=== PATIENT | male | born 1960 | race Caucasian/White ===

== ENCOUNTER 2016-09-27 11:13 | Day surgery (SDC) | payer MEDICARE, OTHER ==
[~2016-09-27] VITALS: Ht 170.2 cm; Wt 109.0 kg
[~2016-09-27 11:13] MED LIST: BENI40TA30 PO; CITA20TA4 PO; COUM7.5T PO; CYCL5TAB PO; GLUCTAB PO; HYDR10TA16 PO; LEVEMIR SC; NOVORP2 SQ; REST30CA PO; ROSU40 PO
[2016-09-27] MEDS ORDERED: ASPIRIN 81 MG CHEW TAB PO SCH (11:30)
[2016-09-27] MEDS ORDERED: FURO1TAB62 PO (11:46)
[2016-09-27] MEDS ORDERED: COUM6TAB PO (11:46)
[2016-09-27] MEDS ORDERED: IRBE150T15 PO (11:46)
[2016-09-27] MEDS ORDERED: TEMA30CA PO (11:46)
[2016-09-27] MEDS ORDERED: METF500T PO (11:46)
[2016-09-27] MEDS ORDERED: ESCI10TA PO (11:46)
[2016-09-27] MEDS ORDERED: LIPI40TA PO (11:46)
[2016-09-27] MEDS ORDERED: SPIR25 PO (11:46)
[2016-09-27] MEDS ORDERED: HYDR-3583 PO (11:46)
[2016-09-27] MEDS ORDERED: GABA300C5 PO (11:46)
[2016-09-27] MEDS ORDERED: LANTINJ SQ (11:46)
[2016-09-27] MEDS ORDERED: AMLO10TA2 PO (11:46)
[2016-09-27] MEDS ORDERED: METO-309 PO (11:46)
[2016-09-27 11:47] VITALS: BP 153/95; PULSE 71; RESP 18; TEMP 98.6; O2SAT 98
[2016-09-27 12:11] LABS: AUTOMATED NEUTROPHIL # 4.8 TH/MM3 (1.8-7.7); BASOPHIL # 0.1 TH/MM3 (0-0.2); BASOPHIL % 0.9 % (0.0-2.0); EOSINOPHIL # 0.3 TH/MM3 (0-0.4); EOSINOPHIL % 4.7 % (0.0-4.0); HEMO FLAGS DIFF FINAL; LYMPH % 14.8 % (9.0-44.0); MEAN CELL VOLUME 82.8 FL (80.0-100.0); MEAN CORPUSCULAR HEMOGLOBIN 27.9 PG (27.0-34.0); MEAN CORPUSCULAR HGB CONC 33.7 % (32.0-36.0); MONO % 10.3 % (0.0-8.0); NEUT % 69.3 % (16.0-70.0); PLATELET COUNT 171 TH/MM3 (150-450); RED BLOOD COUNT 5.32 MIL/MM3 (4.50-5.90); RED CELL DISTRIBUTION WIDTH 15.9 % (11.6-17.2); WHITE BLOOD COUNT 6.9 TH/MM3 (4.0-11.0)
[2016-09-27 12:17] LABS: PROTHROMBIN TIME - PATIENT 11.3 SEC (9.8-11.6)
[2016-09-27 12:25] LABS: BICARBONATE 26.4 MEQ/L (21.0-32.0); POTASSIUM 4.7 MEQ/L (3.5-5.1)
[2016-09-27] MEDS ORDERED: HEPARIN-NS/PF INJ 500 ML ONE (13:38)
[2016-09-27] MEDS ORDERED: MIDAZOLAM HCL 2 MG/2 ML VIAL ONE (14:07)
[2016-09-27] MEDS ORDERED: HEPARIN SODIUM - IV 10,000 UNITS/10 ML VIAL ONE (14:24)
[2016-09-27] MEDS ORDERED: TIROFIBAN INFUSION INJ 250 ML IV ONE (14:28)
[2016-09-27] MEDS ORDERED: CLOPIDOGREL 300 MG TAB ONE (14:41)
[2016-09-27] MEDS ORDERED: ASPIRIN 81 MG CHEW TAB ONE (14:41)
[2016-09-27] MEDS: TIROFIBAN INFUSION INJ 250 ML IV SCH (14:55)
[2016-09-27] MEDS ORDERED: BACITRACIN OINT 0.9 GM PKT TOP ONE (15:00)
[2016-09-27] MEDS ORDERED: MISC INFORMATION XX ONE (15:00)
[2016-09-27] MEDS ORDERED: SODIUM CHLORIDE 0.9% FLUSH 10 ML FLUSH PRN (15:00)
[2016-09-27] MEDS ORDERED: CLOPIDOGREL 300 MG TAB PO ONE (15:00)
--- NOTE | 2016-09-27 15:19 | CATHPROC ---
LIQVID HIS Report Study Information Study Number Admission Scheduled Start Study Start [id number] Sep 27 2016 11:13AM 09/27/2016 Sep 27 2016 1:45PM [place] Service Cardiac Catheterization Admit Source Facility Department Other [facility] - Mixing Machine Tender [employer] Physician and Clinical Staff Initial Steven Song [employer] Person Sofia Antonio,MARCELO Recorder Nancy Jones,RT(R) Recorder Carlos A Lopez RCIS(BS) Scrub Abril Truong RCIS TECH2 Procedures Performed Procedure Location (Site) Vessel Name Coronary Angiograms RCA Right Coronary Coronary Angiograms BRUNO Graft Left Coronary Coronary Angiograms SVG-OM CIRC Drug Eluting Inflatio PDA Prox Right Coronary LV Gram-hand inj. LV LV Ventricle PTCA PDA Prox Right Coronary Wire insertion Fem Art (right) Femoral Art Equipment Time Atomizer Assembler Description Size Mfg Part Number Used/Scraped [id number] 14:32 [employer] WIRE, ASAHI PROWATER 180CM 180CM Used *[id number] 14:38 [employer] WIRE, ASAHI PROWATER 180CM 180CM Used *[id number] CATHETER, FR5 SWAN ABIGAIL 13:52 SHARMA ANTONIO FR 5 [id number] *[id number] Used MONITOR TRANSDUCER, TRUWAVE [id number] 13:52 SHARMA ANTONIO * Used W/STOCKCOCK *[id number] 538-420 *[id number] *[id number] [id number] *[id number] WIRE, HYDROSTEER 150CM [id number] 14:19 DAIG/[employer] [place] MED[employer] 150CM Used ANGLED GLIDE *[id number] 13:52 MEDLINE INDUSTRIES PACK, CCL CUSTOM * Used *[id number] 13:52 MEDLINE PACER PEN, SKIN DUAL W/ RULER * Used *[id number] BALLOON, 2.5 X 12MM NC [id number] 14:40 MEDTRONIC 12MM Used EUPHORA *[id number] 14:35 MEDTRONIC STENT, 2.5 14 INTEGRITY 2.5 14 Used *[id number] 14:36 SmartThings MEDICAL 30 DAGOBERTO INDEFLATOR Used *[id number] [id number]-5F- 13:52 SmartThings MEDICAL SHEATH, FR5.5 PRELUDE 11CM FR 5.5 Used [id number] [id number]-6F- 14:27 SmartThings MEDICAL SHEATH, FR6.5 PRELUDE 11CM FR 6.5 038ACT Used *[id number] 13:52 MERIT MEDICAL WIRE, 3MMJ .035 180CM 180CM Used *[id number] 13:52 NAMIC MANIFOLD, 4 PORT * Used *[id number] 13:52 NYCOMED OMNIPAQUE, 350 MG, 150ML 150ML [id number] Used [id number] 13:52 [employer] MEDICAL BLANKET,WARM AIR CCL * Used *[id number] 13:52 TERUMO MEDICAL SHEATH, FR4 TERUMO (10CM) FR 4 Used *[id number] Equipment Model, Serial, Lot Number and Expiration Data Description Model Number Serial Number Lot Number Expiration Date STENT, 2.5 14 INTEGRITY [id number] 05-24-2017 WIRE, HYDROSTEER 150CM [id number] 07-14-2019 ANGLED GLIDE History: Current Medications Medication Dosage/Unit Route Frequency Last Date/Time Taken Beta Edith Coumadin History: Allergies Allergy Reaction *MDRO Multi-Drug Resistant Organism SOME PLASTICS PT STATES NO ALLERGY TO THIS History: Risk Factors Family History of Hypertension Dyslipidemia Previous ME Previous Heart Failure Premature CAD Yes Yes Yes Yes Yes Prior Valve Prior PCI Prior PCIDate Prior CABG Prior CABGDate Surgery No Yes 02/13/2015 Yes 02/13/2015 Cerebrovascular Peripheral Artery Chronic Lung On Dialysis Diabetes Diabetes Therapy Disease Disease Disease No Yes Yes Yes Yes Insulin History: Symptoms/Diagnosis Selection Items Chest pain History: Stress Tests Stress or Imaging Studies Performed Yes Standard Exercise Stress Test No Stress Echo No Stress Test SPECT Stress Test SPECT Result Stress Test SPECT Ischemia Risk/Extent Yes Positive Low Stress Test CMR No Cardiac CTA Coronary Calcium Score No No History: Other Disease Selection Items CAD CHF COPD History: Other Current Smoker No Labs Hgb (g/dl) Hct (%) WBC (l/cumm) Platelets (thousands) 11.60-17.00 35.00-51.00 4.00-11.00 150.00-450.00 14.8 44 6.9 171 Glucose (mg/dl) BUN (mg/dl) Creatinine (mg/dl) BUN:Creatinine (1:x) 74.00-106.00 7.00-18.00 0.50-1.30 10.00-20.00 159 26 1.4 18.6 Na (meq/l) K (meq/l) 136.00-145.00 3.50-5.10 137 4.7 INR (PTT:PT) 0.90-1.10 1 Troponin I (ng/ml) CPK (u/l) CPK-MB (ng/ML) 0.02-0.05 26.00-308.00 0.50-3.60 0.01 60 Not Drawn Medication Medication Total Dose (Bolus/Oral) Medication Total Dosage/Unit 1% XYLOCAINE 20 mL AGGRASTAT BOLUS 54 mL ASPIRIN 81 mg HEPARIN 7600 units PLAVIX 600 mg VERSED 1 mg Medications (Bolus/Oral) Medication Time Given Dosage/Unit Administered By Reason 1% XYLOCAINE 09/27/2016 2:05:55 PM 20 mL Steven Alfred 20 mL 1% XYLOCAINE given in lab by Steven Alfred in Right Groin via Subcutaneous. VERSED 09/27/2016 2:07:42 PM 1 mg Sofia Antonio 1 mg VERSED given in lab by Sofia Antonio RN in Left Forearm via Peripheral IV. HEPARIN 09/27/2016 2:26:13 PM 7600 units Sofia Antonio 7600 units HEPARIN given in lab by Sofia Antonio RN in Left Forearm via Peripheral IV. AGGRASTAT BOLUS 09/27/2016 2:43:37 PM 54 mL Sofia Antonio 54 mL AGGRASTAT BOLUS given in lab by Sofia Antonio RN in Left Forearm via Peripheral IV. ASPIRIN 09/27/2016 2:46:30 PM 81 mg Sofia Antonio 81 mg ASPIRIN given in lab by Sofia Antonio RN via Oral. Ordered by Steven Alfred. PLAVIX 09/27/2016 2:46:35 PM 600 mg Sofia Antonio 600 mg PLAVIX given in lab by Sofia Antonio RN via Oral. Ordered by Steven Alfred. Medication (Drip) Medication Time Given Dosage/Unit Concentration/Unit Diluent (ml) Solution AGGRASTAT DRIP 09/27/2016 2:45:17 PM 0.074 mcg/kg/min 12.5 mg 250 NaCl .9 0.074 mcg/kg/min AGGRASTAT DRIP given in lab by Sofia Antonio RN in Left Forearm via Peripheral IV. Pump/Drip Flow = 9.75 ml/hr using NaCl .9 with a concentration of 12.5 mg in 250 ml. Ordered by Steven Alfred. Initial Case Assessment Cardiovascular HR Rhythm NIBP Chest Pain 69 paced 131/94 0 Edema Present Skin color Skin None Normal Warm Circulatory - Right Pulses Femoral 1 Scale (0,1,2,3,4,d) Circulatory - Left Pulses Femoral 1 Scale (0,1,2,3,4,d) Neurological State Oriented to time-place- Alert Moves all extremities person Respiration - General Respiration Rate SpO2 (%) (B/min) 15 98 Final Case Assessment Chronological Log Time Study Chronological Log 13:46:38 Patient arrived via Bed. 13:46:39 Patient Name, D.O.B, / Armband Verified By R.N. 13:46:40 Consent signed by the physician and the patient and verified by the Mixing Machine Tender [employer] staff. 13:46:41 Pre-op and post- op instructions given; patient acknowledges understanding of instructions . 13:47:29 Patient has been NPO for More than 6Hrs. 13:47:30 Skin Breakdown- none per patient 13:47:32 Patient Warmer Placed on the Table. Vitals capture started with the following parameters, Patient=Adult, Interval=5 min, Initial P sbhttax=060 mmHg, 13:49:12 Deflation Rate=5 mmHg, Cuff placed on Right Arm 13:49:49 HR=69 bpm, MKAR=715/94 mmhg, SpO2=97.0 %, Resp=19 B/min 13:54:44 HR=69 bpm, RXUA=852/94 mmhg, SpO2=97.0 %, Resp=16 B/min 13:55:54 A # 20 IV was noted in the Forearm (right). Grade = 0 13:55:55 History and physical on the chart or being dictated. Assessment: Initial Case, HR=69 BPM, Rhythm=paced, TKGY=832/94 mmhg, Chest Pain=0, Edema=None, Color=Normal, Skin = Warm Right Pulses: Femoral=1 13:55:56 Left Pulses: Francisco Ped=1, Femoral=1 Neurological: State=Alert, Ox3, HUGHES Respiration: Resp=15 B/min, SpO2=98 % 13:56:15 Reference ECG taken 13:57:48 Bilateral groins prepped with 2% chlorhexidine, and draped after a 3 min. waiting time. 13:59:47 HR=69 bpm, SJQR=954/84 mmhg, SpO2=97.0 %, Resp=20 B/min 14:01:34 Pressure channel 2 zeroed. 14:01:48 MD paged 14:01:50 MD responded 14:02:17 MD arrived. 14:04:46 HR=69 bpm, VVMA=538/89 mmhg, SpO2=95.0 %, Resp=22 B/min Time Out. Correct patient, correct procedure,correct physician, ,power injector loaded or not l oaded with contrast with 14:05:40 surgical team present. Time Out Concurred by MD, individual staff and [facility]YEAR WELTER in procedure 14:05:53 Case Start 14:05:55 20 mL 1% XYLOCAINE given in lab by Steven Alfred in Right Groin via Subcutaneous. 14:07:02 Access site was Right Femoral Artery. 14:07:25 A SHEATH, FR4 TERUMO (10CM) FR 4 was advanced into the Fem Art (right) using the Percutaneo us technique. 14:07:42 1 mg VERSED given in lab by Sofia Antonio, RN in Left Forearm via Peripheral IV. 14:09:01 Access site was Right Femoral Vein. 14:09:12 A SHEATH, FR5.5 PRELUDE 11CM FR 5.5 was advanced into the Fem Vein (right) using the Percut aneous technique. 14:09:45 Saturation: Site=FA (Femoral Artery) , O2=96.4 %, Hgb=14.8 gm/dl, Condition=Condition 1. Us ed in calculation. 14:09:47 HR=69 bpm, NHCG=614/87 mmhg, SpO2=96.0 %, Resp=23 B/min 14:10:00 A CATHETER, FR5 SWAN ABIGAIL MONITOR FR 5 was inserted via Fem Vein (right) Recorded Pressure: PCW, HR=79, Condition=Condition 1 14:10:36 (Pulmonary Capillary Wedge) PCW Recorded Pressure: MPA, HR=70, Condition=Condition 1 14:10:50 (Main Pulmonary Artery) MPA 14:11:13 Saturation: Site=PA (Pulmonary Artery) , O2=70.4 %, Hgb=14.8 gm/dl, Condition=Condition 1. Used in calculation. Recorded Pressure: RV, HR=70, Condition=Condition 1 14:11:40 (Right Ventricle) RV 33//8 Recorded Pressure: RA, HR=70, Condition=Condition 1 14:11:52 (Right Atrium) RA 14:12:04 Saturation: Site=RA (Right Atrium) , O2=71.8 %, Hgb=14.8 gm/dl, Condition=Condition 1. Used in calculation. 14:12:19 [place] Abigail Catheter Removed A JR 4.0 INFINITI CATHETER FR 4 was advanced over a wire. OMNIPAQUE, 350 MG, 150ML 150ML was us ed for 14:12:41 injections. Recorded Pressure: LV, HR=70, Condition=Condition 1 14:13:20 (Left Ventricle) LV 135/6/11 14:13:30 The LV was manually injected with 8 cc's and visualized. OMNIPAQUE, 350 MG, 150ML 150ML use d. Recorded Pressure: LV, Ao, HR=70, Condition=Condition 1 14:13:42 (Left Ventricle) LV 126/8/9, (Aorta) Ao 127/80/100 14:14:48 HR=69 bpm, HZEP=082/86 mmhg, SpO2=96.0 %, Resp=31 B/min Recorded Pressure: Ao, HR=70, Condition=Condition 1 14:15:04 (Aorta) Ao 127/79/99 14:17:12 The RCA was injected and visualized at various angles. OMNIPAQUE, 350 MG, 150ML 150ML used . 14:17:20 The SVG-OM was injected and visualized at various angles. OMNIPAQUE, 350 MG, 150ML 150ML us ed. 14:18:41 A WIRE, HYDROSTEER 150CM ANGLED GLIDE 150CM was inserted via Fem Art (right). 14:19:13 Wire removed 14:19:49 HR=69 bpm, ZEFB=130/87 mmhg, SpO2=97.0 %, Resp=25 B/min 14:19:57 The BRUNO Graft was injected and visualized at various angles. OMNIPAQUE, 350 MG, 150ML 150M L used. 14:22:28 Catheter was removed A JL 4.0 INFINITI CATHETER FR 4 was advanced over a wire. OMNIPAQUE, 350 MG, 150ML 150ML was us ed for 14:22:39 injections. 14:24:46 HR=69 bpm, SFDT=934/90 mmhg, SpO2=97.0 %, Resp=19 B/min 14:25:24 Catheter was removed A SHEATH, FR6.5 PRELUDE 11CM FR 6.5 was exchanged in the Fem Art (right). This was necessary in order to 14:26:06 accomodate a larger catheter. 14:26:13 7600 units HEPARIN given in lab by Sofia Antonio, RN in Left Forearm via Peripheral IV. A JR 4.0 GUIDE CATHETER FR 6 was advanced over a wire. OMNIPAQUE, 350 MG, 150ML 150ML was used for 14:28:02 injections. 14:29:49 HR=69 bpm, YYOW=185/85 mmhg, SpO2=97.0 %, Resp=19 B/min 14:30:43 A WIRE, ASAHI PROWATER 180CM 180CM was inserted via Fem Art (right). 14:32:33 Activated Clotting Time Drawn 14:34:50 HR=71 bpm, STYQ=294/84 mmhg, SpO2=97.0 %, Resp=19 B/min A STENT, 2.5 14 INTEGRITY 2.5 14 was advanced through a JR 4.0 GUIDE CATHETER FR 6 over a WIRE, ASAMN 14:35:02 PROWATER 180CM 180CM. A STENT, 2.5 14 INTEGRITY 2.5 14 was deployed using a 30 DAGOBERTO INDEFLATOR at 11 atmospheres for 2 2 seconds in 14:35:04 the PDA Prox. 14:36:09 Delivery device removed 14:37:00 Wire removed 14:37:58 A WIRE, ASAHI PROWATER 180CM 180CM was inserted via Fem Art (right). 14:38:09 ACT (Normal Range 90-180) = 320 14:39:51 HR=71 bpm, VWUQ=696/84 mmhg, SpO2=97.0 %, Resp=23 B/min A BALLOON, 2.5 X 12MM NC EUPHORA 12MM was inserted over WIRE, ASAHI PROWATER 180CM 180CM via th e Fem 14:39:54 Art (right). A BALLOON, 2.5 X 12MM NC EUPHORA 12MM over a WIRE, ASAHI PROWATER 180CM 180CM in the PDA Prox w as 14:40:48 inflated using a 30 DAGOBERTO INDEFLATOR at 12 dagoberto for 15 sec. 14:41:24 Balloon Removed. 14:41:29 Wire removed 14:42:20 Catheter was removed 14:43:08 Case End 14:43:37 54 mL AGGRASTAT BOLUS given in lab by Sofia Antonio RN in Left Forearm via Peripheral IV. 14:44:52 HR=69 bpm, VGZG=733/88 mmhg, SpO2=98.0 %, Resp=21 B/min 0.074 mcg/kg/min AGGRASTAT DRIP given in lab by Sofia Antonio RN in Left Forearm via Perip heral IV. 14:45:17 Pump/Drip Flow = 9.75 ml/hr using NaCl .9 with a concentration of 12.5 mg in 250 ml. Ordered by Steven Alfred. 14:46:30 81 mg ASPIRIN given in lab by Sofia Antonio RN via Oral. Ordered by Steven Alfred. 14:46:35 600 mg PLAVIX given in lab by Sofia Antonio RN via Oral. Ordered by Steven Alfred. 14:50:11 Vitals capture stopped. 14:53:06 Assessment: Final Case 14:53:09 Sheath(s) left in place, will be removed in Holding Area 14:53:16 Sterile dressing applied to site 14:53:19 No case complications noted. 14:53:22 Cine recording checked. 14:53:59 Bedside Report will be given. 14:54:02 Implantable Device card placed in patient's chart. 14:54:04 Contrast Scanned 14:54:07 A Left and Right Heart Cath was performed. 14:54:09 Patient moved to [facility] End Study - Contrast Media Used In Study Contrast Total Opened (mL) Total Used (mL) Total Wasted (mL) Omnipaque 200 200 0 End Study - Maximum Contrast Load Max Contrast Load (mL) 389.6 End Study - Radiation Exposure Fluoro Time (minutes) 10.0 End Study - Patient Disposition Complications Transferred To Interventional Outcome No Telemetry Bed successful
[2016-09-27] MEDS ORDERED: IOHEXOL 350 MG/ML 100 ML BTL (for Cath Lab) OTHER ONE (15:24)
[2016-09-27] MEDS: NS 1000P @30 MLS/HR (KVO) IV SCH (16:35)
[2016-09-27] MEDS ORDERED: TEMAZEPAM 15 MG CAP PO PRN (19:45)
[2016-09-27 20:00] VITALS: BP 143/99; PULSE 64; RESP 20; TEMP 98.2; O2SAT 96
[2016-09-27] MEDS ORDERED: WARFARIN SOD 6 MG TAB PO SCH (20:00)
[2016-09-27] MEDS: LOSARTAN 50 MG TAB PO SCH (20:32)
[2016-09-27] MEDS: SODIUM CHLORIDE 0.9% FLUSH 10 ML FLUSH SCH (20:32)
[2016-09-27] MEDS: GABAPENTIN 300 MG CAP PO SCH (20:32)
[2016-09-27] MEDS: FUROSEMIDE 20 MG TAB PO SCH (20:32)
[2016-09-27] MEDS ORDERED: ATORVASTATIN 40 MG TAB PO SCH (21:00)
[2016-09-27] MEDS: METOPROLOL TARTRATE 25 MG TAB PO SCH (22:25)
[2016-09-27] MEDS: ACETAMINOPHEN/HYDROcodone 325 MG/10 MG TAB PO PRN (22:36)
[2016-09-28] VITALS (11 sets, daily range): BP systolic 96–136; BP diastolic 60–84; PULSE 69–73; RESP 18–20; TEMP 97.6–98.4; O2SAT 97–98
--- NOTE | 2016-09-28 00:22 | EKG ---
Date Performed: 09/27/2016 Time Performed: 20:01:12 PTAGE: 55 years EKG: Atrial fibrillation with PVC(s) or aberrant ventricular conduction Probable Vpaced Left axi s deviation PREVIOUS TRACING : 09/27/2016 11.55 Compared to prior tracing no significant change DOCTOR: Levon Taylor Interpretating Date/Time 09/28/2016 00:20:58
[2016-09-28] MEDS: TIROFIBAN INFUSION INJ 250 ML IV SCH (03:40)
[2016-09-28 03:59] LABS: AUTOMATED NEUTROPHIL # 5.5 TH/MM3 (1.8-7.7); BASOPHIL # 0.1 TH/MM3 (0-0.2); EOSINOPHIL # 0.4 TH/MM3 (0-0.4); EOSINOPHIL % 4.8 % (0.0-4.0); HEMATOCRIT 39.8 % (39.0-51.0); HEMO FLAGS DIFF FINAL; LYMPH % 8.1 % (9.0-44.0); LYMPHOCYTE # 0.6 TH/MM3 (1.0-4.8); MEAN CELL VOLUME 83.6 FL (80.0-100.0); MEAN CORPUSCULAR HEMOGLOBIN 27.8 PG (27.0-34.0); MEAN CORPUSCULAR HGB CONC 33.3 % (32.0-36.0); MONO % 11.7 % (0.0-8.0); NEUT % 74.4 % (16.0-70.0); PLATELET COUNT 173 TH/MM3 (150-450); RED BLOOD COUNT 4.75 MIL/MM3 (4.50-5.90); WHITE BLOOD COUNT 7.4 TH/MM3 (4.0-11.0)
[2016-09-28 04:22] LABS: POTASSIUM 4.2 MEQ/L (3.5-5.1)
[2016-09-28 04:25] LABS: HDL CHOLESTEROL 31.2 MG/DL (40.0-60.0)
[2016-09-28] MEDS: ACETAMINOPHEN/HYDROcodone 325 MG/10 MG TAB PO PRN (07:53)
--- NOTE | 2016-09-28 08:21 | MR ---
cc: RENE LLANOS M.D. DATE: 09/27/2016 PROCEDURE Right heart catheterization, left heart catheterization, left ventriculography, coronary angiography, BRUNO angiography, saphenous vein angiography, bare metal stent to the proximal right PDA. INDICATION New onset cardiac symptoms of severe chest pain at rest and severe dyspnea on exertion. [place] Cardiovascular Society class 4 angina, [place] Heart Association class 3 congestive heart failure, coronary disease, diabetes, multiple cardiac risk factors, status post CABG. DETAILS OF PROCEDURE The patient was brought to the cardiac catheterization laboratory, prepped and draped in the usual sterile fashion. 10 cc of 1% lidocaine was used to locally anesthetize the right common femoral artery. A 4-Namibian sheath was placed in the right common femoral artery. A 5-Namibian sheath was placed in the right common femoral vein. Right heart catheterization was performed first with the following findings: Pulmonary capillary wedge pressure 15/13-11. PA pressure 31/13-23. RV pressure 33/5-8. RA pressures 11/10-8. Room air sat of the femoral artery was 96.4%, pulmonary artery 70.4%, right atrium 71.8%. Cardiac output by Lindsay 5.2 liters per minute. Cardiac index by Lindsay 2.4 liters per meter squared per minute. SVR 1391.7 dynes. Left heart catheterization was then performed with 4-Namibian JR4 and JL4 catheters with the following findings: LV pressures 140/15-16. Ejection fraction 60%. CORONARY ANGIOGRAPHY The right coronary is dominant, has a proximal 50% stenosis. There is a long 40-50% stenosis in the midsegment. The distal segment has a long 50% stenosis. The right PDA has a long ostial proximal 90-95% stenosis. The stent in the mid vessel is widely patent. The distal vessel is small angiographically. There is probably at least 70-75% stenosis just beyond the stent, however, the vessel at that segment has a reference vessel diameter of approximately 1 mm. The vein graft to the obtuse marginal vessel is widely patent. The OM beyond the graft insertion site has no significant obstructive disease. There is no significant retrograde filling into the left circumflex. The BRUNO to the LAD is widely patent. The LAD at the graft insertion site has a 70-75% stenosis. The LAD is transapical. Also, beyond the initial stenosis there is a 50% stenosis. The left main coronary artery has no significant disease angiographically. The left circumflex has no significant disease angiographically. The first obtuse marginal vessel is occluded in the proximal segment. The LAD is occluded after the first septal health specialist branch. There is a high OM vessel that probably has severe diffuse disease in the proximal segment. The imaging is difficult. It is estimated to be 70%, however, the vessel reference diameter is probably maybe 2 to 2.25 mm in diameter. INTERVENTION The 4-Namibian sheath was exchanged for a 6-Namibian sheath. 70 units per kilo of heparin was given. The ACT was 326. A 6-Namibian JR4 guide, 0.014 Prowater guidewire was used to cross the proximal right PDA stenosis. A 2.5 x 14 Integrity stent was directly placed and deployed with one inflation to 12 atmospheres for 20 seconds. There still remained a focal stenosis in the midsegment of the stent. A 2.5 x 12 mm noncompliant Euphora balloon was then used to post dilate the stenotic area of the stent with one inflation to 14 atmospheres for 20 seconds. The stenosis went from 95% to 0% with ALYSON-III flow. Note, prior to stent deployment the stent was obstructive of contrast flow beyond the stent suggesting high-grade lesion. CONCLUSIONS 1. New onset cardiac symptom of severe chest pain at rest associated with severe dyspnea on exertion. Small fixed defect in the posterior wall and inferoapical wall. Somewhat indeterminate culprit lesion. Given the nuclear defect I suspect the right PDA was the culprit lesion, particularly as it was higher grade than the LAD beyond the graft insertion site. 2. Otherwise severe three-vessel coronary artery disease in a right dominant system. 3. Two out of three grafts patent. 4. 75% stenosis of the LAD just beyond the BRUNO graft insertion site. 5. Difficult left subclavian access due to extreme vessel tortuosity requiring a 0.035 Glidewire to advance the catheter. 6. Normal LV systolic function, ejection fraction 60%. 7. Normal right heart catheterization pressures as detailed above. 8. Successful PCI with bare metal stent of the ostial proximal right PDA from 90-95% to 0% with ALYSON-III flow. RECOMMENDATIONS Recommend Plavix 600 mg p.o. load then 75 mg a day for 12-15 months and aspirin 81 mg daily. Will also resume the patient's Coumadin today. I have instructed the patient myself personally to hold his Glucophage/metformin for 48 hours post procedure. The patient understands. Otherwise will continue optimal medical therapy for coronary artery disease with Lipitor 40, Lopressor 25 b.i.d., isosorbide and amlodipine 10. If the patient has persistent chest pain will consider PCI of the LAD beyond the BRUNO graft insertion site. MD KAYE Mills/SLIM /2:46 PM /7:50 AM
[2016-09-28] MEDS ORDERED: CLOPIDOGREL 75 MG TAB PO SCH (09:00)
[2016-09-28] MEDS ORDERED: INSULIN DETEMIR 100 UNITS/ML VIAL SQ SCH (09:00)
[2016-09-28] MEDS ORDERED: ASPIRIN 81 MG CHEW TAB PO SCH (09:00)
[2016-09-28] MEDS ORDERED: ESCITALOPRAM OXALATE 10 MG TAB PO SCH (09:00)
[2016-09-28] MEDS: GABAPENTIN 300 MG CAP PO SCH (09:10)
[2016-09-28] MEDS: METOPROLOL TARTRATE 25 MG TAB PO SCH (09:11)
[2016-09-28] MEDS: LOSARTAN 50 MG TAB PO SCH (09:12)
[2016-09-28] MEDS: FUROSEMIDE 20 MG TAB PO SCH (09:12)
[2016-09-28] MEDS: SODIUM CHLORIDE 0.9% FLUSH 10 ML FLUSH SCH (09:13)
[2016-09-28] MEDS: NS 1000P @30 MLS/HR (KVO) IV SCH (11:00)
[2016-09-28] MEDS ORDERED: PLAV75TA29 PO (12:36)
--- NOTE | 2016-09-28 14:59 | EKG ---
Date Performed: 09/28/2016 Time Performed: 05:32:08 PTAGE: 55 years EKG: Probable VPaced, underling atrial fibrillation Abnormal ECG PREVIOUS TRACING : 09/27/2016 20.01 Compared to prior tracing no significant change DOCTOR: Levon Taylor Interpretating Date/Time 09/28/2016 14:58:51
[2016-09-29] MEDS ORDERED: metFORMIN HCL 500 MG TAB PO SCH (09:00)
--- NOTE | 2016-09-29 09:12 | EKG ---
Date Performed: 09/27/2016 Time Performed: 11:55:46 PTAGE: 55 years EKG: Underlying Afib Most likely Vpaced, but possible LBBB Abnormal ECG PREVIOUS TRACING : 04/03/2013 09.16 Compared to prior tracing no significant change DOCTOR: Levon Taylor Interpretating Date/Time 09/29/2016 09:03:31
== END 2016-09-28 13:30 | disposition home or self-care (01) ==
LOC: HDIC 11:13 → HDOC 11:13 → HCIN 16:11 → HDOC 09-28 13:30
PROVIDERS: ATTEND Internal Medicine Interventional Cardiology
DX: I25.110 Atherosclerotic heart disease of native coronary artery with unstable angina pectoris (principal); I10 Essential (primary) hypertension; E11.9 Type 2 diabetes mellitus without complications; E78.2 Mixed hyperlipidemia; I48.91 Unspecified atrial fibrillation; I48.92 Unspecified atrial flutter; R26.81 Unsteadiness on feet; Z95.5 Presence of coronary angioplasty implant and graft; Z95.1 Presence of aortocoronary bypass graft; Z95.0 Presence of cardiac pacemaker; Z79.01 Long term (current) use of anticoagulants; Z79.82 Long term (current) use of aspirin; Z79.4 Long term (current) use of insulin; Z79.899 Other long term (current) drug therapy
CPT/HCPCS: 80048; 80061; 82550; 82810; 85002; 85025; 85347; 85610; 92928; 93005; 93461; C1725; C1769; C1876; C1887; C1893; J1644; J2250; J3010; J3246; Q9967